=== PATIENT | male | born 2000 | race Two or more races ===

== ENCOUNTER 2024-11-10 18:06 | Emergency (ER) | payer SELFPAY ==
[2024-11-10 18:06] VITALS: BMI 33.0
[2024-11-10 18:37] VITALS: BP 147/96; PULSE 99; RESP 18; TEMP 37.2; O2SAT 100
--- NOTE | 2024-11-10 18:38 | XR_ITS ---
Examination: AP lateral chest 2 views Technique: Upright PA lateral chest 2 views Exam date and time: November 10, 2024 1911 hrs. Indications: Cardiac palpitations dizziness today. Findings: Normal heart size Lungs are clear The osseous structures are intact Impression: No active disease
--- NOTE | 2024-11-10 18:38 | EKG_ITS ---
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
--- NOTE | 2024-11-10 18:42 | PD.EDRME ---
Rapid Medical Screening Exam RME Arrival date/time: 11/10/24 18:06 24 yo m present to ED for c/o of chest pain today I have greeted and performed a focused initial assessment of this patient. A comprehensive ED assessment and evaluation of the patient, analysis of all test results, and completion of the medical decision making process will be conducted by additional ED providers. Chief Complaint: Arrhythmia/Palpitations Time Seen by Provider: 11/10/24 18:10 Vital signs: Vital Signs Temperature 98.9 F 11/10/24 18:37 Pulse Rate 99 11/10/24 18:37 Respiratory Rate 18 11/10/24 18:37 Blood Pressure 147/96 H 11/10/24 18:37 Pulse Oximetry (%) 100 11/10/24 18:37 Oxygen Delivery Method Room Air 11/10/24 18:37
[2024-11-10 19:00] LABS: Basophils % (Auto) 0 % (0-2.5); Eosinophils # (Auto) 0.1 Thou/mm3 (0.0-0.5); Eosinophils % (Auto) 1 % (0-10); Hematocrit 45.7 % (41.0-53.0); Immature Granulocytes % (Auto) 0 % (0-0); Immature Granulocytes Auto 0.02 Thou/mm3 (0.00-0.00); Lymphocytes # (Auto) 2.2 Thou/mm3 (1.0-4.8); Lymphocytes % (Auto) 21 % (10-50); Mean Corpuscular Hemoglobin 29.2 pg (25.0-35.0); Mean Corpuscular Volume 83 fL (80-100); Monocytes # (Auto) 0.7 Thou/mm3 (0.0-0.8); Monocytes % (Auto) 7 % (0-12); Neutrophils # (Auto) 7.2 Thou/mm3 (1.8-7.7); Neutrophils % (Auto) 70 % (37-80); Nucleated Red Blood Cell % 0 /100 WBC (0); Platelet Count 290 Thou/mm3 (140-440); RDW Standard Deviation 38.1 fL (35.1-43.9); Red Blood Count 5.48 Miln/mm3 (4.50-5.90); White Blood Count 10.3 Thou/mm3 (3.8-10.6)
--- NOTE | 2024-11-10 19:04 | EDNOTE_ITS ---
ED Chest Pain RME/HPI General Chief Complaint: Arrhythmia/Palpitations Stated Complaint: CHEST FEELS LIKE FLUTTERING Time Seen by Provider: 11/10/24 18:10 Source: patient Arrival date/time: 11/10/24 18:06 Mode of arrival: ambulatory Limitations: no limitations RME / HPI RME / HPI narrative: 11/10/24 18:06 24 yo m present to ED for c/o of chest pain today I have greeted and performed a focused initial assessment of this patient. A comprehensive ED assessment and evaluation of the patient, analysis of all test results, and completion of the medical decision making process will be conducted by additional ED providers. DR. CAZARES MAIN ED EVALUATION: 24-year-old male with no significant past medical history presents to the [facility] with complaints of mild chest pain and palpitations. He describes the chest pain as intermittent and pressure-like in nature, with a moderate severity. The palpitations are described as a fluttering sensation in his chest. The patient reports that the symptoms have been present for the past few hours but denies any associated shortness of breath, dizziness, or syncope. No recent trauma, heavy exertion, or new stressors noted. Related Data Allergies Allergy/AdvReac Type Severity Reaction Status Date / Time NKA* Allergy Uncoded 11/10/24 18:08 Review of Systems Review of Systems Systems Reviewed: All systems reviewed, normal except as documented Narrative Review of Systems: GEN: No fever, no chills, no weight loss EYES: No discharge, no visual changes, no pain HEENT: No ear pain, no congestion, no sore throat PULM: No shortness of breath, no cough, no congestion CV: + mild chest pain, no dyspnea on exertion, + palpitations GI: No nausea, no vomiting, no diarrhea, no pain, no constipation : No frequency, no urgency and no dysuria MUSC/SKEL: No joint pain, no back pain SKIN: No rash PSYCH: No hallucinations, no depression HEME/LYMPH: No easy bleeding or bruising tendencies NEURO: No weakness, no headache Past Medical History Social History SMOKING STATUS: Never smoker SUBSTANCE USE: does not use ALCOHOL: Never ED Exam Narrative Physical exam: GENERAL APPEARANCE: alert and oriented x 4, well-developed, well-nourished, no acute distress VITALS: All vitals were reviewed and the pulse ox is 100% on room air, which is normal according to my interpretation. HEENT: Normocephalic, atraumatic; pupils equal, round, reactive to light; EOMI; mucous membranes pink, moist; oropharynx clear NECK: Supple LUNGS: CTABL; no wheezes, no rales, no rhonchi HEART: Regular rate, regular rhythm; normal S1, S2; no murmurs ABDOMEN: non distended; normal BS; soft, no tenderness, no guarding, no rebound; no masses, no organomegaly, no hernia BACK: no CVA tenderness EXTREMITIES: atraumatic; no edema NEUROLOGIC: awake; alert and oriented x4; cranial nerves II-XII grossly intact; no focal sensory or motor deficits PSYCHIATRIC: appropriate mood and affect SKIN: warm, dry, normal color; no rashes General Limitations: Present no limitations Course Course Course Narrative: CXR is ordered for determining etiology of palpitations, chest pain. Quality Measures none Orders Category Date Time Status EKG (ED ONLY) *Do not use* NOW Care 11/10/24 18:38 Completed EKG (ED Only) Stat Exams 11/10/24 18:38 Draft XR chest 2V Stat Exams 11/10/24 18:38 Completed Alcohol, Blood Medical Stat Lab 11/10/24 18:53 Completed CBC Stat Lab 11/10/24 18:53 Completed CMP [Comprehensive Metabolic Panel] Stat Lab 11/10/24 18:53 Completed Drug Screen,Urine Stat Lab 11/10/24 21:52 Completed Free T4 (Free Thyroxine) Stat Lab 11/10/24 18:53 Completed Mag [Magnesium] Stat Lab 11/10/24 18:53 Completed TSH [Thyroid Stimulating Hormone] Stat Lab 11/10/24 18:53 Completed Troponin I Stat Lab 11/10/24 18:53 Completed Vital Signs Vital signs: Vital Signs Temperature 98.9 F 11/10/24 18:37 Pulse Rate 99 11/10/24 18:37 Respiratory Rate 18 11/10/24 18:37 Blood Pressure 147/96 H 11/10/24 18:37 Pulse Oximetry (%) 100 11/10/24 18:37 Oxygen Delivery Method Room Air 11/10/24 18:37 Chest Pain MDM Narrative MDM Narrative:: IJennie am scribing for and in the presence of Dr. Cazares. Patient data External records reviewed:: None (no previous visits) Clinical information provided by:: patient Social determinants that could affect healthcare access:: none Patient has the following chronic illnesses:: Denies any PMHx, surgeries, daily medications, or known allergies. How is presenting disease/condition affected by chronic disease/condition?: no c hronic disease Evaluation data The following diagnostics were reviewed and interpreted by me:: lab results, radiology exam(s) and EKG tracing(s) (sinus tachycardia, rate 102, QTc 421,) Lab and/or radiology exams considered but not ordered:: none Interpretation Summary: I personally reviewed the radiology data and agree with the radiologist's interpretation. Examination: AP lateral chest 2 views Technique: Upright PA lateral chest 2 views Exam date and time: November 10, 2024 1911 hrs. Indications: Cardiac palpitations dizziness today. Findings: Normal heart size Lungs are clear The osseous structures are intact Impression: No active disease Dictated By: Raúl Boogie MD Medications / Prescriptions Medications or Prescriptions considered but not ordered:: none Medication administrations:: see above if any Consultations Consultation(s) initiated? (list below): No Diagnosis Chest Pain Differential Diagnosis: atypical chest pain, costochondritis, chest pain and other (anxiety) Most likely diagnosis given after review of the tests above:: Palpitations Sinus tachycardia Admission Indicated Admission indicated?: not indicated Admission Request Was there a request for admission?: No Disposition Plan Disposition Plan: Discharge Discharge Attestation Discharge Attestation: The patient and all family members were given an opportunity to ask questions and understood the discharge instructions. Discharge instructions specifically effects, indications for sooner follow up or return to the emergency department, and the expected course of current diagnosis. Patient condition: Stable Discharge Plan Plan Patient Disposition: HOME (Self Care) Prescriptions/Referrals Referrals: Christiane Jacobs MD [Primary Care Provider] - In 1 week Problem List Clinical Impression: Palpitations, Sinus tachycardia Patient/Caregiver Discharge Instructions Education Materials: ED About Arrhythmias, ED Palpitations Print Language: German Stand Alone Forms: Mercedes Award Info., Work/School Release, Patient Portal Info Letter
[2024-11-10 19:24] LABS: Alanine Aminotransferase 17 U/L (10-49); Albumin, Serum 5.2 gm/dL (3.5-5.0); Albumin/Globulin Ratio 1.9 (1.2-2.2); Alcohol, Blood Medical < 3.0 mg/dL (0-10.0); Alkaline Phosphatase 115 U/L (46-116); Anion Gap 9 (7-16); Aspartate Amino Transferase 12 U/L (0-34); BUN/Creatinine Ratio 16 Ratio (12-20); Bilirubin,Total 1.1 mg/dL (0.3-1.2); Blood Urea Nitrogen 14 mg/dL (9-23); Carbon Dioxide 26.7 mMol/L (20.0-31.0); Chloride 105 mMol/L (98-107); Creatinine (Component) 0.9 mg/dL (0.6-1.3); Estimated Creatinine Clearance 150.5 mL/min (>60); Globulin 2.8 gm/dL (2.3-3.5); Glucose 94 mg/dL (74-106); Osmolality,Calculated 281 (275-295); Potassium 3.9 mMol/L (3.4-5.1); Sodium 141 mMol/L (136-145); Thyroid Stimulating Hormone 0.52 uIU/mL (0.55-4.78); Troponin I < 0.020 ng/mL (0.0-0.045); eGFR > 60 See Note
[2024-11-10 22:10] LABS: Free T4 (Free Thyroxine) 1.53 ng/dL (0.89-1.76)
[2024-11-10 23:10] LABS: Amphetamine/Methamp Scrn,U Negative (Negative); Barbiturate Screen,Urine Negative (Negative); Benzodiazepines Screen,Urine Negative (Negative); Benzoylecgonine Screen, Ur Negative (Negative); Fentanyl Screen,Urine Negative (Negative); Opiate Screen,Urine Negative (Negative); THC Screen,Urine Negative (Negative)
[2024-11-10 23:19] VITALS: BP 117/51; PULSE 85; RESP 18; TEMP 36.8; O2SAT 98
== END 2024-11-10 23:35 | disposition home or self-care (01) ==
PROVIDERS: Physician Assistant; Emergency Provider Emergency Medicine; PCP Family Medicine
DX: R00.2 Palpitations (principal); R00.0 Tachycardia, unspecified
CPT/HCPCS: 36415; 71046; 80053; 80307; 80320; 83735; 84439; 84443; 84484; 85025; 93005; 99283; G0480